=== PATIENT | female | born 1975 | race Caucasian/White ===

== ENCOUNTER 2020-12-23 10:15 | Emergency (ER) | payer BC, OTHER ==
[~2020-12-23 10:15] MED LIST: AMLODIPINE BES2.5 MG PO; BENADRYL25 MG PO; HYDROCHLOROTHIA25 MG PO; IBU600 MG PO; IBU800 MG PO; KEFLEX500 MG PO; PERCOCET 5-3251 EACH PO; VITAMIN C500 M1 PO; VITAMIN D350 MC3 PO
[2020-12-23 11:07] LABS: HEMOGLOBIN 13.6 gm/dl (12.3-15.3); RED BLOOD COUNT 4.8 M/UL (4.00-5.10); WHITE BLOOD COUNT 6.7 K/UL (4.5-11.0)
[2020-12-23 11:25] LABS: BUN/CREATININE RATIO 19 (0-10)
== END 2020-12-23 11:51 | disposition home or self-care (01) ==
LOC: ER1 10:15
PROVIDERS: Physician Assistant
DX: E11.65 Type 2 diabetes mellitus with hyperglycemia (principal)
CPT/HCPCS: 80048; 85025; 99284

== ENCOUNTER 2021-04-07 12:01 | Emergency (ER) | payer BC, OTHER ==
[2021-04-07 13:15] LABS: HEMOGLOBIN 13.1 gm/dl (12.3-15.3); RED BLOOD COUNT 4.6 M/UL (4.00-5.10); WHITE BLOOD COUNT 6.9 K/UL (4.5-11.0)
[2021-04-07] MEDS ORDERED: JANUVIA50 MG PO (14:59)
[2021-04-07 15:06] LABS: BUN/CREATININE RATIO 18 (0-10)
== END 2021-04-07 15:20 | disposition home or self-care (01) ==
LOC: ER1 12:01
PROVIDERS: Physician Assistant
DX: E11.65 Type 2 diabetes mellitus with hyperglycemia (principal); Z88.5 Allergy status to narcotic agent; Z79.84 Long term (current) use of oral hypoglycemic drugs
CPT/HCPCS: 80053; 81001; 82962; 85025; 87086; 99284